=== PATIENT | male | born 1950 | race Caucasian/White ===

== ENCOUNTER 2020-01-05 13:52 | Emergency (ER) | payer OTHER, SELFPAY ==
[2020-01-05 15:00] VITALS: BP 152/73; PULSE 71; RESP 18; TEMP 36.5; O2SAT 97; BMI 34.6
--- NOTE | 2020-01-05 15:57 | HMH.EDUTC ---
[facility] [place] Impression: Close exposure to COVID-19 virus Disposition: Home, Self-Care Condition on Discharge: Good Instructions: Preventing the Spread of Coronavirus Discharge Instructions Additional Instructions: You have been tested for COVID19. Test results generally take 48-72 hours. Act as if you are positive and quarantine yourself until you know the results. Referrals: Yves Garnett [Primary Care Provider] - Time of Disposition: 16:04 Medical Decision Making - Donnie Inquiry Pt receiving controlled substance: No Vital Signs: 01/05/20 15:00 Temperature 97.7 F Temperature Source Oral Pulse Rate [Left Radial] 71 Respiratory Rate 18 Blood Pressure [Left Arm] 152/73 H Blood Pressure Mean [Left Arm] 99 Blood Pressure Source [Left Arm] Manual Cuff/ Doppler Blood Pressure Position [Left Arm] Sitting 02 Sat by Pulse Oximetry 97 Oxygen Delivery Method Room Air Orders (Tests/Meds): ORDERS Category Date Time Status SARS-CoV-2, [place] ([place]) Stat Lab 01/05/20 15:11 [place] [facility] [place] General Stated complaint: covid test Time Seen by Provider: 01/05/20 15:57 Mode of Arrival: Ambulatory Limitations: No Limitations Description of Symptoms (Recalled from Triage Doc. by RN): Pt reports he wants to be tested for COVID. Pt states he was around his brother on Wednesday whos tested positive for COVID the previous day. Pt reports he began sneezing yesterday. Denies fever, SOA, cough, sore throat, loss of taste or smell. HEENT Symptoms (Recalled from RN notes): Yes (sneezing) Resp Symptoms (Recalled from RN notes): No Skin Symptoms (Recalled from RN notes): No MS Symptoms (Recalled from RN notes): No Functional Status (Recalled from RN notes): n/a - History of Present Illness Provider Complaint: Patient's sister in law was diagnosed with COVID19 4-5 days ago and has been very ill. He denies symptoms, but would like to be tested to be sure. No fever. - Related Data Home Medications Medication Instructions Recorded Confirmed Atorvastatin Calcium [Lipitor 20mg 20 mg PO HS 03/26/19 03/26/19 Tablet] Metformin HCl [Metformin 1000mg 1,000 mg PO BID 03/26/19 03/26/19 Tablets] Pantoprazole Sodium [Protonix 40mg 40 mg PO DAILY 03/26/19 03/26/19 tablet] buPROPion HCL [Wellbutrin SR 150mg 150 mg PO DAILY 03/26/19 03/26/19 Tablet] lisinopriL [Lisinopril 20mg Tab] 20 mg PO DAILY 03/26/19 03/26/19 Allergies Allergy/AdvReac Type Severity Reaction Status Date / Time Penicillins Allergy Verified 03/26/19 03:41 - Worker's Comp Is this a Worker's Comp case?: No [facility] History - Hepatitis A Screen Drug use history?: No High risk sexual behaviors?: No History of sexually transmitted infection?: No Currently employed?: No Childcare worker?: No Do you have indoor plumbing?: Yes Do you have electricity?: Yes Attestation statement:: This patient has been screened for Hepatitis A risk factors. I have reviewed the patient's past medical history: Yes Medical History: Reports:: Diabetes Mellitus Type 2 Denies:: Internal Pacemaker Laterality Cases: Bilateral: Arthroscopy Knee Other Surgeries: No: Pacemaker - Social History Alcohol Intake: current Alcohol Intake Frequency:: 0-2 drinks per day Occupational Status: other ROS Obtained: Yes All systems reviewed & no additional complaints - Constitutional Constitutional: Denies body ache, Denies chills, Denies fatigue, Denies fever(s) - ENT Ears, Nose, Mouth, and Throat: Denies nasal congestion, Denies nasal discharge, Denies sore throat Physical Exam - General General appearance: alert, in no apparent distress - Head Head exam: atraumatic, normocephalic, normal inspection - Eye Eye exam: Present: normal appearance, PERRL, EOMI - ENT ENT exam: Present: normal exam, normal oropharynx, mucous membranes moist, TM's normal bilaterally, normal external ear exam - Neck Neck exam: Present: normal inspection,
[2020-01-05 16:16] VITALS: BP 152/73; PULSE 71; RESP 18; TEMP 36.5; O2SAT 97
[2020-01-07 09:53] LABS: Covid-19 Nasal PCR Sendout UK Not Detected
== END 2020-01-05 16:22 | disposition home or self-care (01) ==
PROVIDERS: Emergency Provider Physician Assistant
DX: Z03.818 Encounter for observation for suspected exposure to other biological agents ruled out (principal); E11.9 Type 2 diabetes mellitus without complications; Z88.0 Allergy status to penicillin; Z79.84 Long term (current) use of oral hypoglycemic drugs
CPT/HCPCS: 99201; U0003

== ENCOUNTER 2021-01-10 09:25 | Emergency (ER) | payer OTHER, SELFPAY ==
[2021-01-10 09:26] VITALS: BP 137/67; PULSE 66; RESP 18; TEMP 36.6; O2SAT 97; BMI 34.4
--- NOTE | 2021-01-10 09:31 | HMH.EDUPEXT ---
ED Disposition Clinical Impression: Contusion of elbow, left Qualifiers: Encounter type: initial encounter Qualified Code(s): S50.02XA - Contusion of left elbow, initial encounter Disposition: Home, Self-Care Condition on Discharge: Fair Additional Instructions: Limited use of left upper extremity until you feel better. Follow-up with your primary care physician in about 1 week if you do not feel better. Take [id number] ibuprofen and/or Tylenol for pain. Return to the emergency department if you feel worse in any way. Referrals: Provider,Referral, [Primary Care Provider] - - Critical Care Critical Care Time: No Attestation: On , the high probability of a clinically significant, sudden or life threatening deterioration of the following system(s) required my full and direct attention, intervention and personal management. The time I documented below is in addition to time spent performing reported procedures but includes the following listed in this critical care notation. Medical Decision Making - Medical Records Medical records reviewed: Yes: I reviewed the patient's medical records. - Donnie Inquiry Pt receiving controlled substance: No Vital Signs: 01/10/21 09:26 01/10/21 10:34 Temperature 97.9 F 97.9 F Temperature Source Oral Oral Pulse Rate 61 Pulse Rate [Left Radial] 66 Respiratory Rate 18 16 Blood Pressure 137/75 Blood Pressure [Right Arm] 137/67 Blood Pressure Mean [Right Arm] 90 Blood Pressure Source Automatic Cuff Blood Pressure Source [Right Arm] Automatic Cuff Blood Pressure Position Sitting Blood Pressure Position [Right Arm] Sitting 02 Sat by Pulse Oximetry 97 Oxygen Delivery Method Room Air Room Air - Lab Data Lab results reviewed: Yes: I reviewed the patient's lab results. Orders (Tests/Meds): ED MEDICATIONS Discontinued Medications Generic Name Dose Route Start Last Admin Trade Name Freq PRN Reason Stop Dose Admin Ketorolac Tromethamine 60 mg 01/10/21 09:34 01/10/21 09:38 Ketorolac 60mg/2ml Vial IM 01/10/21 09:35 60 mg ONCE ONE Administration - Radiology Data #1 Image(s): Elbow Image Reviewed: Yes I reviewed the patient's radiology results, Yes I reviewed the patient's radiology image Preliminary Findings: Normal/NAD Medical Decision Narrative: The patient presents to the emergency department complaining of a left elbow injury. This happened while throwing away large pieces of lumber. On physical examination there is no neurovascular deficit. The patient has normal range of motion. There are no lacerations or abrasions. Radiographs of the left elbow were obtained and reviewed by me. I do not see any evidence of dislocation and fracture. I feel that the patient can be safely discharged home with instructions to follow-up with her primary care physician if not improved within the next week or so. Upper Extremity HPI - General Chief Complaint: Trauma Stated Complaint: a/o hit with object left elbow Time Seen by Provider: 01/10/21 09:31 Mode of Arrival: Ambulatory Source of Information: Patient Limitations: No Limitations - History of Present Illness HPI narrative: Presents to the emergency department complaining of an injury to the left elbow. He states that he was throwing away some wood pieces and got struck in the elbow by 1 of these pieces. He denies any other injuries or loss of consciousness, nausea, vomiting. MD complaint: injury to: left, elbow Onset (ago): minute(s) (45) - Related Data Home Medications Medication Instructions Recorded Confirmed Atorvastatin Calcium [Lipitor 20mg 20 mg PO HS 03/26/19 03/26/19 Tablet] Metformin HCl [Metformin 1000mg 1,000 mg PO BID 03/26/19 03/26/19 Tablets] Pantoprazole Sodium [Protonix 40mg 40 mg PO DAILY 03/26/19 03/26/19 tablet] buPROPion HCL [Wellbutrin SR 150mg 150 mg PO DAILY 03/26/19 03/26/19 Tablet] lisinopriL [Lisinopril 20mg Tab] 20 mg PO KAMI
--- NOTE | 2021-01-10 09:32 | XR_ITS ---
PROCEDURE: XR ELBOW LT 2V CLINICAL INDICATION: injury Injury with pain COMPARISON: No exams were available for comparison FINDINGS: No fracture or dislocation. No lytic or blastic change. There is normal mineralization. The joint spaces are well-preserved. No significant degenerative/arthritic changes. No erosive changes evident. Other findings:Well-defined calcifications are present along the lateral epicondyle region suggesting old injury and or ligamentous calcification. No displaced fat pad. IMPRESSION: No acute findings. Dictated by: Steffen Gannon MD 01/10/2021 10:20 Steffen Gannon MD in [place] 01/10/2021 10:20
[2021-01-10 10:34] VITALS: BP 137/75; PULSE 61; RESP 16; TEMP 36.6; O2SAT 98
== END 2021-01-10 10:34 | disposition home or self-care (01) ==
LOC: ER 09:46
PROVIDERS: Emergency Provider Emergency Medicine
DX: S50.02XA Contusion of left elbow, initial encounter (principal); W22.8XXA Striking against or struck by other objects, initial encounter; Y92.89 Other specified places as the place of occurrence of the external cause; E11.9 Type 2 diabetes mellitus without complications; Z88.0 Allergy status to penicillin; Z79.899 Other long term (current) drug therapy
CPT/HCPCS: 73070; 96372; 99282

== ENCOUNTER 2022-12-18 17:14 | Emergency (ER) | payer MEDICARE, OTHER, SELFPAY ==
[2022-12-18 17:16] VITALS: BP 111/68; PULSE 87; RESP 17; TEMP 36.7; O2SAT 98; BMI 33.6
--- NOTE | 2022-12-18 17:53 | HMH.EDGENADL ---
Discharge Plan Disposition Patient Disposition: Home, Self-Care Prescriptions Prescriptions: New methocarbamol 500 mg tablet 500 mg PO Q8H PRN (Reason: pain) Qty: 15 0RF naproxen 500 mg tablet 500 mg PO BID PRN (Reason: pain) Qty: 20 0RF No Action bupropion HCl 150 MG tablet 150 mg PO DAILY atorvastatin 20 MG tablet 20 mg PO HS lisinopril 20 MG tablet 20 mg PO DAILY pantoprazole 40 MG tablet,delayed release (DR/EC) 40 mg PO DAILY metformin 1,000 MG tablet 1,000 mg PO BID Referrals Follow up/Referrals: Provider,Referral, MD [Primary Care Provider] - See instructions Activity Restrictions/Add. Instructions Additional Instructions/Restrictions: Return the emergency department for worsening pain or any other concerns within the next 8 hours otherwise follow-up with your primary care physician within the next few days Clinical Impressions Clinical Impression: Muscle spasm Instructions Patient Instructions: DI for Neck Pain Discharge ED Provider: Jaime Lisa General Adult HPI General Chief complaint: Neck Pain/Injury Stated complaint: neck and head pain Time Seen by Provider: 12/18/22 17:15 Mode of Arrival: Wheelchair Source of Information: Patient Limitations: No Limitations Description of Symptoms (Recalled from ER Triage Doc. by RN): PT TO ED WITH NECK PAIN SINCE YESTERDAY THAT STARTED AT THE RIGHT OF HIS NECK AND MOVED TO THE LEFT. PT REPORTS HE WAS PICKING GREEN BEANS IN THE [place]ARD[place] ALL DAY THE DAY BEFORE AND HAS HAD NECK PAIN EVER SINCE. PT DENIES ANY CHEST PAIN, SOB OR RECENT ILLNESS History of Present Illness HPI narrative: 72-year-old male presents with neck stiffness started on the right now moved to the left. He was picking green beans in his garden all day yesterday and then began having the pain. He denies chest pain shortness of air fever abdominal pain nausea or vomiting. He has not had stiffness like this before. It is worse with moving his neck but is also worse with moving his chest and his back. Related Data Home Medications Medication Instructions Recorded Confirmed atorvastatin 20 mg tablet 20 mg PO HS High cholesterol 03/26/19 03/26/19 bupropion HCl 150 mg tablet,12 hr 150 mg PO DAILY Depression 03/26/19 03/26/19 sustained-release lisinopril 20 mg tablet 20 mg PO DAILY High blood pressure 03/26/19 03/26/19 metformin 1,000 mg tablet 1,000 mg PO BID Diabetes 03/26/19 03/26/19 pantoprazole 40 mg tablet,delayed 40 mg PO DAILY GERD 03/26/19 03/26/19 release Previous Rx's Medication Instructions Recorded methocarbamol 500 mg tablet 500 mg PO Q8H PRN pain #15 tabs 12/18/22 naproxen 500 mg tablet 500 mg PO BID PRN pain #20 tabs 12/18/22 Allergies Allergy/AdvReac Type Severity Reaction Status Date / Time Penicillins Allergy Verified 03/26/19 03:41 [facility] Disclaimer: The information contained in this section may have been updated after the patient was seen, as this information can be updated by other users. Social History Smoking Status: Never smoker alcohol intake: current current occupational status: other Travel in the last 8 weeks: None ROS Obtained: Yes All systems reviewed & no additional complaints except as documented Constitutional Constitutional: Denies body ache, Denies chills, Denies fatigue and Denies fever(s) Eyes Eyes: Denies dry eyes ENT Ears, Nose, Mouth, and Throat: Denies dizziness Cardiovascular Cardiovascular: Denies dyspnea Respiratory Respiratory: Denies dyspnea Gastrointestinal Gastrointestingal: Denies coffee ground emesis Genitourinary Male Genitourinary: Denies flank pain Musculoskeletal Musculoskeletal: Denies joint stiffness Integumentary/Breasts Skin/Breast: Denies rash Neurologic Neurologic: Denies dizziness Endocrine Endocrine: Denies fatigue Hematologic/Lymphatic Henatologic/Lymphatic: Denies easy bleeding Allergic/Immunologic Allergic/Immunologic: Denies urticaria Physical Exam General General appearance: alert and in no apparent distress Eye Eye exam: Present PERRL and EOMI ENT ENT exam: Present normal exam and normal oropharynx Neck Neck exam: Present normal inspection Chest Chest inspection: Present symmetric chest wall rise Respiratory Respiratory exam: Present normal lung sounds bilaterally; Absent respiratory distress Cardiovascular Cardiovascular exam: Present regular rate and normal rhythm Abdominal Exam Abdominal exam: Present soft; Absent distention, tenderness, guarding, rebound, Quintero's sign or tenderness at McBurney's Point Rectal Exam Rectal exam: Present deferred Back Exam Back exam: Present normal inspection Neurological Exam Neurological exam: Present alert and oriented X3 Psychiatric Psychiatric exam: Present normal affect and normal mood Skin Skin exam: Present warm, dry and intact Lymphatic Lymphatic Findings: no adenopathy Medical Decision Making Medical Records Medical records reviewed: Yes I reviewed the patient's medical records. Donnie Inquiry Pt receiving controlled substance: No Donnie was queried for this patient: No Vital Signs: 12/18/22 17:16 12/18/22 18:01 Temperature 98.1 F Temperature Source Oral Pulse Rate 103 H Pulse Rate [Left Radial] 87 Respiratory Rate 17 Blood Pressure 153/73 H Blood Pressure [Right Arm] 111/68 Blood Pressure Mean 99 Blood Pressure Mean [Right Arm] 82 Blood Pressure Source [Right Arm] Automatic Cuff Blood Pressure Position [Right Arm] Sitting 02 Sat by Pulse Oximetry 98 98 Oxygen Delivery Method Room Air Lab Data Lab results reviewed: Yes I reviewed the patient's lab results. Orders (Tests/Meds): ED MEDICATIONS Generic Name Dose Route Start Last Admin Trade Name Freq PRN Reason Stop Dose Admin Sodium Chloride 1,000 mls @ 999 mls/hr 12/18/22 18:00 12/18/22 18:03 Sod Chlor 0.9% 1000ml Bag IV 12/18/22 19:00 999 mls/hr .Q1H1M EILEEN Administration Discontinued Medications Generic Name Dose Route Start Last Admin Trade Name Freq PRN Reason Stop Dose Admin Diazepam 5 mg 12/18/22 17:55 12/18/22 18:03 Diazepam 10mg/2ml Syringe IV 12/18/22 17:56 5 mg ONCE ONE Administration Ketorolac Tromethamine 30 mg 12/18/22 17:55 12/18/22 18:01 Ketorolac 30mg/Ml Vial IV 12/18/22 17:56 30 mg ONCE ONE Administration Medical Decision Narrative: 71-year-old male with difficulty moving his head. Appears to be musculoskeletal related. I am not concerned for meningitis at this time as he is stable. Plan to obtain labs give some IV fluids give some Valium as well to see if that relaxes it. On reexamination at 6:40 PM he is able to move his neck has full range of motion is feeling much better. Plan to discharge home with muscle relaxers and NSAIDs Critical Care Time Critical Care Time Critical Care Time: No Attestation: On 12/18/22, the high probability of a clinically significant, sudden or life threatening deterioration of the following system(s) required my full and direct attention, intervention and personal management. The time I documented below is in addition to time spent performing reported procedures but includes the following listed in this critical care notation.
[2022-12-18 18:01] VITALS: BP 153/73; PULSE 103; O2SAT 98
[2022-12-18] MEDS: KETOROLAC 30MG/ML VIAL 30 MG IV (18:01)
[2022-12-18] MEDS: diazePAM 10MG/2ML SYRINGE 5 MG IV (18:03)
[2022-12-18] MEDS: 0.9 % SODIUM CHLORIDE 1000ML 1,000 ML 999 ML IV (18:03)
[2022-12-18 18:31] VITALS: BP 138/66; PULSE 87; RESP 17; O2SAT 97
[2022-12-18 19:14] VITALS: BP 138/74; PULSE 87; RESP 17; TEMP 36.7; O2SAT 98
== END 2022-12-18 19:19 | disposition home or self-care (01) ==
PROVIDERS: Emergency Provider Emergency Medicine
DX: M54.2 Cervicalgia (principal); R25.2 Cramp and spasm
CPT/HCPCS: 96361; 96374; 96375; 99284